=== PATIENT | female | born 1965 | race African-American/Black ===

== ENCOUNTER 2019-03-07 10:46 | Emergency (ER) | payer OTHER ==
[~2019-03-07] VITALS: Ht 165.1 cm; Wt 77.1 kg
--- NOTE | 2019-03-07 10:55 | NUR ---
ECHOVASCULAR TECH CALLED OUT FOR SONOGRAM.
--- NOTE | 2019-03-07 11:35 | NUR ---
ECHOVASCULAR TECH AT BEDSIDE FOR SONOGRAM AT THIS TIME.
[2019-03-07 13:05] VITALS: BP 114/83
== END 2019-03-07 12:35 | disposition home or self-care (01) ==
LOC: ER 10:46
DX: M79.622 Pain in left upper arm (principal); I10 Essential (primary) hypertension; E11.9 Type 2 diabetes mellitus without complications; Z86.718 Personal history of other venous thrombosis and embolism
CPT/HCPCS: 93971; 99283